=== PATIENT | male | born 1965 | race Two or more races ===

== ENCOUNTER 2017-06-08 01:01 | Emergency (ER) | payer MEDICAID ==
[~2017-06-08] VITALS: Ht 188 cm; Wt 116.1 kg
[2017-06-08 03:22] LABS: PLATELET COUNT 210 x10^3mcL (130-400); RED CELL DISTRIBUTION WIDTH 13.9 % (11.5-14.5)
[2017-06-08 03:25] LABS: CALCIUM 8.9 mg/dL (8.5-10.1); CARBON DIOXIDE 26.5 mmol/L (21-32); CREATININE SERUM 1.8 mg/dL (0.7-1.3); POTASSIUM SERUM 3.6 mmol/L (3.5-5.1)
[2017-06-08 03:30] LABS: BILIRUBIN TOTAL 0.74 mg/dL (0.20-1.00); TOTAL PROTEIN, SERUM 7.1 g/dL (6.4-8.2)
[2017-06-08 03:35] LABS: ALBUMIN 2.9 g/dL (3.4-5.0)
[2017-06-08 04:24] VITALS: BP 176/89
== END 2017-06-08 04:24 | disposition left against medical advice (07) ==
LOC: ED 01:01
PROVIDERS: Emergency Medicine
DX: R07.9 Chest pain, unspecified (principal); E11.9 Type 2 diabetes mellitus without complications; I10 Essential (primary) hypertension; Z95.1 Presence of aortocoronary bypass graft; F17.210 Nicotine dependence, cigarettes, uncomplicated
CPT/HCPCS: 36415; 83880

== ENCOUNTER 2018-05-10 00:15 | Emergency (ER) | payer MEDICAID ==
[~2018-05-10] VITALS: Ht 182.9 cm; Wt 119.4 kg
[2018-05-10 02:35] VITALS: BP 119/79
== END 2018-05-10 02:36 | disposition left against medical advice (07) ==
LOC: ED 00:15
DX: Z53.21 Procedure and treatment not carried out due to patient leaving prior to being seen by health care provider (principal)

== ENCOUNTER 2018-05-11 14:07 | Emergency (ER) | payer MEDICAID ==
[~2018-05-11] VITALS: Ht 182.9 cm; Wt 119.7 kg
[2018-05-11 14:24] VITALS: BP 145/91; Ht 182.9 cm; Wt 119.7 kg
== END 2018-05-11 15:24 | disposition home or self-care (01) ==
LOC: ED 14:07
DX: S62.396A Other fracture of fifth metacarpal bone, right hand, initial encounter for closed fracture (principal); I10 Essential (primary) hypertension; E11.9 Type 2 diabetes mellitus without complications; F17.210 Nicotine dependence, cigarettes, uncomplicated; W22.8XXA Striking against or struck by other objects, initial encounter; Y93.89 Activity, other specified; Y92.89 Other specified places as the place of occurrence of the external cause; Y99.8 Other external cause status
CPT/HCPCS: 99406

== ENCOUNTER 2018-12-13 07:21 | Inpatient (IN) | payer MEDICAID ==
[~2018-12-13] VITALS: Ht 188 cm; Wt 117.5 kg
[2018-12-13 07:29] VITALS: Ht 188 cm; Wt 117.5 kg
--- NOTE | 2018-12-13 07:36 | NUR ---
PER PT HE WAS SLEEPING AND WOKE UP WITH TIGHTNESS IN HIS CHEST. PT STS THAT THE CHEST TIGHTNESS RADIATES TO BACK. PT STS THAT NOTHING IS MAKING HIS PAIN BETTER OR WORSE. PT DENIES ANY NUMBNESS/TINGLING, DENIES ABDOMINAL PAIN. PT STS THAT HE TOOK ONE ASPRIN. PT PLACED ON FULL CM. NO NEUROLOGICAL DEFICITS NOTED. PT SKIN IS INTACT, PINK AND WARM. PT IS ALERT AND ORIENTED, SPEAKING IN CLEAR AND FULL SENTENCES. VSS. RESP E/U. DR. THIBODEAUX AT BEDSIDE FOR MSE. PT STS THAT HE HAD "OPEN HEART SURGERY, BYPASS". WILL CONTINUE TO MONITOR.
--- NOTE | 2018-12-13 07:49 | NUR ---
ALB AT BEDSIDE
--- NOTE | 2018-12-13 07:53 | NUR ---
PT VOMITED INTO EMESIS BAG. PT IS PALE COOL AND DIAPHORETIC. SECOND NITRO GIVEN DR. THIBODEAUX MADE AWARE. 2ND EKG IN PROGRESS.
[2018-12-13 08:04] LABS: CARBON DIOXIDE 23.4 mmol/L (21-32); CREATININE SERUM 1.5 mg/dL (0.7-1.3); POTASSIUM SERUM 4.4 mmol/L (3.5-5.1)
[2018-12-13 08:05] LABS: BASOPHIL % 0.3 % (0-2); PLATELET COUNT 238 x10^3mcL (130-400)
[2018-12-13 08:06] LABS: RED CELL DISTRIBUTION WIDTH 14.8 % (11.5-14.5)
--- NOTE | 2018-12-13 08:08 | NUR ---
3RD NITRO GIVEN FOR UNRELIEVED CHEST PAIN. DR. GRAVES AT BEDSIDE FOR CARDIAC US.
[2018-12-13 08:09] LABS: BILIRUBIN TOTAL 0.5 mg/dL (0.20-1.00); TOTAL PROTEIN, SERUM 7.4 g/dL (6.4-8.2)
[2018-12-13 08:10] LABS: ALBUMIN 3.2 g/dL (3.4-5.0)
--- NOTE | 2018-12-13 08:53 | NUR ---
PT STS THAT HE IS FEELIGN BETTER BUT HE IS WORRIED ABOUT HIS BACK PAIN. PT MEDICATED PER EMAR. PT DENEIS ANY TRAUMA TO BACK. VSS. RESP E/U. WILL CONTINUE TO MONITOR.
--- NOTE | 2018-12-13 09:02 | NUR ---
PT TAKEN TO CT.
--- NOTE | 2018-12-13 09:57 | NUR ---
NITROGLYCERIN INFUSION STARTED. PT STS HE HAS A 7/10 CHEST PAIN. STARTING NITRO AT 10MCG/MIN PER TITRATION RATE, OKAY BY DR. THIBODEAUX. VSS. RESP E/U. HR74, BP 136/96. PT AAOX4. WILL CONTINUE TO MONITOR.
[2018-12-13] MEDS ORDERED: VIAGRA50 MG (10:19)
[2018-12-13] MEDS ORDERED: METOPROLOL SUCC50 M2 PO (10:20)
[2018-12-13] MEDS ORDERED: BENAZEPRIL HYDR40 M1 PO (10:20)
[2018-12-13] MEDS ORDERED: LOVAZA1 G1 (10:20)
[2018-12-13] MEDS ORDERED: ALOGLIPTIN25 MG PO (10:20)
[2018-12-13] MEDS ORDERED: LIPI20 PO (10:21)
[2018-12-13] MEDS ORDERED: GLIPIZIDE5 M2 PO (10:21)
--- NOTE | 2018-12-13 10:22 | NUR ---
PT RESTING WITH VISIBLE CHEST RISE AND FALL. VSS. RESP E/U. PT CONTINUES TO STS HE HAS INTERMITTENT CHEST PAIN 06/07. DR. THIBODEAUX MADE AWARE. WILL CONTINUE TO MONITOR.
--- NOTE | 2018-12-13 10:58 | NUR ---
NITRO INCREASE TO 15MCH/MIN, PER DR. THIBODEAUX "OKAY" FOR PT INTERMITTENT CHEST PAIN. VSS. RESP E/U. NO DISTRESS NOTED. WILL CONTINUE TO MONITOR.
--- NOTE | 2018-12-13 11:01 | NUR ---
LAB AT BEDSIDE.
--- NOTE | 2018-12-13 12:11 | NUR ---
REPORT GIVEN TO FAUZIA FARRIS TO ASSUME CARE OF PT.
--- NOTE | 2018-12-13 12:27 | NUR ---
RECEIVED THE PATIENT FROM ER DEPT VIA [facility]; THE PATIENT AMBULATED TO THE BED WITH STEADY GAIT. PATIENT DENIED NAUSEA/VOMITING OR SHORTNESS OF BREATH. PATIENT STATED PRESSURE LIKE PAIN IN HIS CHEST 5/10 AT THIS TIME. THE PATIENT WAS ON NITRO DRIP AT 15MCG/MIN AT THIS TIME. PATIENT WAS CONNECTED TO FULL MONITOR, WHICH READS NORMAL SINUS RHYTHMS AT THIS TIME. VS CHECKED; ADMISSION ASSESSMENT IMPLEMENTED. PLAN OF CARE DISCUSSED WITH THE PATIENT. CALL LIGHT WITHIN REACH. SIDE RAILS UP X3. BED IS AT LOWEST POSITION. THE WAS IN THE WAITING ROOM AND AWARE THAT THE PATIENT WAS ADMITTED TO ICU BED 8.
[2018-12-13 12:46] LABS: CHOLESTEROL/HDL RATIO 4.2
--- NOTE | 2018-12-13 12:46 | NUR ---
PATIENT C/O HEADACHE. ADMINISTER 650 MG ACETAMINOPHEN PO.
[2018-12-13 12:53] VITALS: BP 111/76
--- NOTE | 2018-12-13 13:17 | NUR ---
BP 103/65(80), AND PATIENT STATED CHEST PRESSURE WAS 3/10 AT THIS TIME; NITRO DRIP TITRATED FROM 15MCG/MIN DOWN TO 10MCG/MIN.
--- NOTE | 2018-12-13 13:41 | NUR ---
PATIENT'S ARRIVED ON UNIT TO SEE PATIENT WITH VERY YOUNG CHILDREN (APPEARS BELOW THE AGE OF 6). PATIENT INFORMED THAT WE ARE UNABLE TO ALLOW YOUNG CHILDREN ON THE UNIT. PATIENT BECAME ANGRY STATING "E.D. SAID SHE CAN BRING THEM." I EXPLAINED TO PATIENT THAT IT IS HOSPITAL POLICY THAT YOUNG CHILDREN ARE NOT ALLOWED IN ICU. PATIENT CALMED DOWN AND STATED "I UNDERSTAND."
--- NOTE | 2018-12-13 14:25 | NUR ---
PATIENT STATES CP 06/07. NITRO DRIP TITRATED FROM 10 MCG TO 8 MCG.
--- NOTE | 2018-12-13 14:36 | NUR ---
MARINE DIVER IS AT BEDSIDE FOR ECHO.
[2018-12-13 15:10] VITALS: BP 112/71
--- NOTE | 2018-12-13 15:56 | NUR ---
PATIENT STATES THE PRESSURE IN CHEST INCREASED TO 4/10 AND ASKED FOR PAIN MED: THE PATIENT CHOSE NORCO INSTEAD OF MORPHINE WHEN OFFERRED PAIN MED. NORCO 1 TAB PO MEDICATED TO THE PATIENT AND NITRO DRIP TITRATED FROM 8MCG/MIN UP TO 10MCG/MIN.
--- NOTE | 2018-12-13 17:53 | NUR ---
BP 89/58 AND MAP 68. PATIENT STATED PRESSURE IN CHEST 3/10 AND TOLERABLE; NITRO DRIP TITRATED FROM 10MCG/MIN DOWN TO 8MCG/MIN.
--- NOTE | 2018-12-13 18:10 | NUR ---
REPORT GIVEN TO LOLITA ALVARADO RN. CONCERNS ADDRESSED.
--- NOTE | 2018-12-13 18:33 | NUR ---
RECIEVED REPORT FROM KALEIGH CERON. NURSING UPDATES POC DISCUSSED. PT [id number]. RESPONDS TO COMMANDS. PERRL. PT WEARS GLASSES FOR VISUAL CORRECTIO BREATHING E/U ON RA. LUNG SOUNDS DIM ALL BRADSHAW. PULSES MOD [id number]. NO EDME NOTED. HR NSR. S1S2 TO AUSC BUT DISTANT HEART SOUNDS. HX OF CABG. SKIN WARM/DRY/INTACT. TOLERATING PO WELL. PERIPHERAL IVS L HAND AND LFA. NITRO INFUSING @ 8MCG/MIN. PT DENIES CP. VOIDS FREELY TO URINAL. FAMILY @ BEDSIDE. PT CALM AND COOPERATIVE.
--- NOTE | 2018-12-13 19:44 | NUR ---
PT C/O PAIN 7/10 GENERALIZED CHEST AREA. PT ADM PRN *(SEE MAR)* MORPHINE. PT TOLERATED WELL. PT NOTED FEELING BETTER WILL CONT TO MONITOR.
[2018-12-13 19:46] VITALS: BP 101/66
--- NOTE | 2018-12-13 20:10 | NUR ---
PT NOTED W/ PB&J SANDWICH AND TEA FOR NOTED HUNGER. PT TOLERATED WELL. WILL CONT TO MONITOR.
--- NOTE | 2018-12-13 21:42 | NUR ---
BP 108/67 AND MAP 82. PATIENT STATED PRESSURE IN CHEST 3/10 AND TOLERABLE; NITRO DRIP TITRATED FROM 8MCG/MIN DOWN TO 5MCG/MIN. PT AGREED TO NOTIFY NURSE IF CHEST PAIN INCREASING.
--- NOTE | 2018-12-13 21:44 | NUR ---
BP 108/67 AND MAP 85. PATIENT STATED PRESSURE IN CHEST 2/10 AND TOLERABLE; NITRO DRIP TITRATED FROM 5MCG/MIN DOWN TO 3MCG/MIN. PT AGREED TO NOTIFIED NURSE IF CHEST PAIN INCREASING.
[2018-12-13 23:03] VITALS: BP 107/69
--- NOTE | 2018-12-14 01:10 | NUR ---
BP 114/72 AND MAP 85. PATIENT STATED PRESSURE 0/10. NITRO DRIP TITRATED FROM 3MCG/MIN DOWN TO 2MCG/MIN. PT AGREED TO NOTIFIED NURSE IF CHEST PAIN INCREASING.
--- NOTE | 2018-12-14 02:13 | NUR ---
PT RESTING CALMLY IN BED. NO ACUTE CHANGES. WILL CONT TO MONITOR.
--- NOTE | 2018-12-14 02:21 | NUR ---
BP 117/69 AND MAP 84. PATIENT STATED PRESSURE 0/10. NITRO DRIP TITRATED FROM 2MCG/MIN DOWN TO 1MCG/MIN. PT AGREED TO NOTIFIED NURSE IF CHEST PAIN INCREASING.
--- NOTE | 2018-12-14 02:46 | NUR ---
NITRO DRIP TITRATED FROM 1MCG/MIN DOWN TO OFF. PT AGREED TO NOTIFIED NURSE IF CHEST PAIN INCREASING. PT TOLERATED WELL RESTING IN BED CALM AND COOPERATIVE. VS WNL.
[2018-12-14 03:06] VITALS: BP 90/54
[2018-12-14 05:33] LABS: BASOPHIL % 0.3 % (0-2); PLATELET COUNT 207 x10^3mcL (130-400)
[2018-12-14 05:36] LABS: RED CELL DISTRIBUTION WIDTH 14.9 % (11.5-14.5)
[2018-12-14 05:38] LABS: CARBON DIOXIDE 24.7 mmol/L (21-32); CREATININE SERUM 1.5 mg/dL (0.7-1.3); POTASSIUM SERUM 4.2 mmol/L (3.5-5.1)
[2018-12-14 07:00] VITALS: BP 105/71
--- NOTE | 2018-12-14 07:00 | NUR ---
RECEIVED REPORT FROM JENNY FARRIS. ALL QUESTIONS ANSWERED AND ADDRESSED. WILL ASSUME CARE
--- NOTE | 2018-12-14 11:23 | NUR ---
REPORT GIVEN TO JUANA FARRIS. ALL QUESTIONS ANSWERED AND ADDERSSED. PT WILL BE GOING TO [facility] WITH TELEBOX #10 VIA WHEELCHAIR. PT'S BELONGINGS BEING TAKEN WITH HIM.
[2018-12-14 11:35] VITALS: BP 105/74
--- NOTE | 2018-12-14 11:35 | NUR ---
RECEIVED PT FROM ICU, ARRIVED VIA WHEELCHAIR, ACCOMPANIED BY RN. Martinez/PINEDA. TELE#10. NSR WITH BBB, HR 79. PT C/O CHEST TIGHTNESS 04/09 TOLERABLE AT THIS TIME. PT STATES "MY CHEST PAIN HAS IMPROVED. ITS JUST THERE AND WONT GO AWAY." RESPIRATIONS EQUAL AND UNLABORED ON RA. DENIES SOB. PT AMBULATORY, STEADY GAIT, ABLE TO REPOSITION SELF IN BED. IV TO LH AND LAC SALINE LOCKED, NO REDNESS OR SWELLING NOTED. PT DENIES ANY N/V OR ABDOMINAL PAIN. WILL CONTINUE TO MONITOR. CALL LIGHT IN REACH. BED IN LOWEST POSITION.
--- NOTE | 2018-12-14 12:52 | NUR ---
PT UPSET ASKING TO BE DISCHARGE. [employer] AWARE. PT INFOMRED WILL BE A WHILE BEFORE DISCHARGE IS READY. PT STATES "I HAVE TO BE DISCHARGED BEFORE 2PM. I NEED TO PROCESS ANALYST MY KIDS BEFORE 2PM." UPDATED PT THAT B[employer]U [employer] WILL WORK ON DISCHARGE AND IT WILL TAKE SOME TIME BEFORE DISCHARGE IS AVAILABLE. ASKED PT IF ANYONE ELSE CAN PROCESS ANALYST HIS CHILDREN. PT STATES "NO MY IS HERE TO PICK ME UP, SO SHE CANT PROCESS ANALYST MY KIDS" WILL CONTINUE TO MONITOR. CALL LIGHT IN REACH. BED IN LOWEST POSITION.
--- NOTE | 2018-12-14 13:42 | NUR ---
PT SITTING UP AT BEDSIDE. PT UPSET. PT STATES "I AM LEAVING. I AM TIRED OF WAITING." PT INFORMED DISCHARGE IS NOT READY AND IF HE LEAVES IT WILL BE AGAINST MEDICAL ADVISE. B[employer]U [employer]ET MADE AWARE. PT SIGNED AMA FOR. TO LAC AND LFA REMOVED CATHETER INTACT. NO REDNESS OR SWELLING NOTED. TELE#10 RETURNED TO HOME APPLIANCE TECH JOSE RAUL. PT ASKING FOR PRESCRIPTIONS PT INFORMED WHEN HE SIGNS OUT AMA NO TREATMENTS OR PRESCRIPTIONS WILL BE GIVEN. PT VERBALIZED UNDERSTANDING.
== END 2018-12-14 14:00 | disposition left against medical advice (07) | DRG 198 ==
LOC: ED 07:21 → IC 11:33 → DU 12-14 11:43
PROVIDERS: Emergency Medicine; ADMIT Internal Medicine
DX: I25.110 Atherosclerotic heart disease of native coronary artery with unstable angina pectoris (principal); N17.9 Acute kidney failure, unspecified; E11.22 Type 2 diabetes mellitus with diabetic chronic kidney disease; E11.65 Type 2 diabetes mellitus with hyperglycemia; I13.10 Hypertensive heart and chronic kidney disease without heart failure, with stage 1 through stage 4 chronic kidney disease, or unspecified chronic kidney disease; N18.9 Chronic kidney disease, unspecified; E78.5 Hyperlipidemia, unspecified; F17.210 Nicotine dependence, cigarettes, uncomplicated; E66.9 Obesity, unspecified; Z68.31 Body mass index [BMI] 31.0-31.9, adult; Z95.1 Presence of aortocoronary bypass graft; Z79.84 Long term (current) use of oral hypoglycemic drugs
CPT/HCPCS: 82962; 83880; G0378; J1815; J2270; J3010; J3490; J7030; Q0092; Q0162; Q9967